=== PATIENT | female | born 1970 | race Caucasian/White ===

== ENCOUNTER 2017-06-12 14:32 | Emergency (ER) | payer BC ==
--- NOTE | 2017-06-12 15:51 | EDM.PDOC ---
ED HPI GENERAL MEDICAL PROBLEM - General Chief Complaint: Lower Extremity Injury/Pain Stated Complaint: POSSIBLE BLOT CLOT IN LT LEG Time Seen by Provider: 06/12/17 15:45 Source of Information: Reports: Patient History Limitations: Reports: No Limitations - History of Present Illness INITIAL COMMENTS - FREE TEXT/NARRATIVE: HISTORY AND PHYSICAL: History of present illness: [Patient comes to the emergency room complaining of left lower extremity pain. Left calf and lower leg have been feeling tight for the past 5 days but pain and swelling began this morning. She complains of warmth and pain to her left calf. Describes it as an aching feeling with some sharp shooting pains. Has a history of type 2 diabetes for several years. Stopped all of her medications about 6 months ago. Smokes one pack of cigarettes per day. No history of bleeding or clotting disorders. No fever or chills. No pain in her right lower extremity. No chest pain shortness of breath or difficulty breathing. She has no other complaints or concerns at this time. ] Review of systems: As per history of present illness and below otherwise all systems reviewed and negative. Past medical history: As per history of present illness and as reviewed below otherwise noncontributory. Surgical history: As per history of present illness and as reviewed below otherwise noncontributory. Social history: No reported history of drug or alcohol abuse. Family history: As per history of present illness and as reviewed below otherwise noncontributory. Physical exam: HEENT: Atraumatic, normocephalic. Lungs: Clear to auscultation, breath sounds equal bilaterally. Heart: S1S2, regular rate and rhythm. Extremities: Positive Homans on the left. Tender with palpation behind left knee over the popliteal space. Calf is tender with palpation. No cords are palpated. Swelling is apparent to left ankle and foot. Cap refill less than 2 seconds. Neurovascular unremarkable. Neuro: Awake, alert, oriented. Motor and sensory unremarkable throughout. Exam nonfocal. Diagnostics: [CBC, CMP, venous Doppler ultrasound left lower extremity] Therapeutics: [Xarelto 15mg po x1] Impression: [DVT Left LE] Plan: [Discussed with patient that she has a DVT to her left lower extremity. Urged her to quit smoking. Stop aspirin. She may use Tylenol for discomfort. Keep leg elevated. She is given her first dose of Xarelto 15 mg in the emergency room and sent home with an Rx for xarelto 15mg (#42) si po BID x 21 days 0 RF's. Urged patient to follow-up with PCP in the next 48 hours. She verbalized understanding of today's discussion and is in agreement with today's plan.] Definitive disposition and diagnosis as appropriate pending reevaluation and review of above. left lower leg Pain Score (Numeric/FACES): 8 - Related Data Allergies Allergy/AdvReac Type Severity Reaction Status Date / Time diphenhydramine Allergy Anaphylactic Verified 06/12/17 14:54 [From Benadryl] Shock Home Meds: Home Meds Aspirin 81 mg PO DAILY 06/12/17 [History] Past Medical History HEENT History: Reports: None Cardiovascular History: Reports: None Respiratory History: Reports: None Gastrointestinal History: Reports: None Genitourinary History: Reports: None [employer] History: Reports: None Musculoskeletal History: Reports: None Neurological History: Reports: None Psychiatric History: Reports: None Endocrine/Metabolic History: Reports: Diabetes, Type II Hematologic History: Reports: None Immunologic History: Reports: None Oncologic (Cancer) History: Reports: None Dermatologic History: Reports: None - Past Surgical History Head Surgeries/Procedures: Reports: None HEENT Surgical History: Reports: None Cardiovascular Surgical History: Reports: None Respiratory Surgical History: Reports: None GI Surgical History: Reports: None Female Surgical History: Reports: Breast Reduction Endocrine Surgical History: Reports: None Neurological Surgical History: Reports: None Musculoskeletal Surgical History: Reports: Other (See Below) Oncologic Surgical History: Reports: None Dermatological Surgical History: Reports: None Social & Family History - Family History Family Medical History: Noncontributory - Tobacco Use Smoking Status *Q: Current Every Day Smoker Years of Tobacco use: 35 Packs/Tins Daily: 1 - Caffeine Use Caffeine Use: Reports: None - Recreational Drug Use Recreational Drug Use: No Review of Systems - Review of Systems Review Of Systems: ROS reveals no pertinent complaints other than HPI. ED EXAM, GENERAL - Physical Exam Exam: See Below Course - Vital Signs Last Recorded V/S: Last Vital Signs Temp 96.8 F 06/12/17 14:55 Pulse 82 06/12/17 18:15 Resp 18 06/12/17 18:15 BP 175/93 H 06/12/17 18:15 Pulse Ox 96 06/12/17 18:15 - Orders/Labs/Meds Orders: Active Orders 24 hr Category Date Time Status Venous Doppler Lwr Ext Lt [US] Stat Exams 06/12/17 15:47 Taken Labs: Laboratory Tests 06/12/17 06/12/17 06/12/17 Range/Units 15:53 15:53 15:53 WBC 6.89 (4.0-11.0) K/uL RBC 4.84 (4.30-5.90) M/uL Hgb 16.2 H (12.0-16.0) g/dL Hct 46.0 (36.0-46.0) % MCV 95.0 (80.0-98.0) fL MCH 33.5 H (27.0-32.0) pg MCHC 35.2 (31.0-37.0) g/dL RDW Std Deviation 43.3 (28.0-62.0) fl RDW Coeff of Sruthi 13 (11.0-15.0) % Plt Count 191 (150-400) K/uL MPV 9.50 (7.40-12.00) fL Neut % (Auto) 73.0 (48.0-80.0) % Lymph % (Auto) 17.7 (16.0-40.0) % Ponce % (Auto) 7.0 (0.0-15.0) % Eos % (Auto) 2.2 (0.0-7.0) % Baso % (Auto) 0.1 (0.0-1.5) % Neut # (Auto) 5.0 (1.4-5.7) K/uL Lymph # (Auto) 1.2 (0.6-2.4) K/uL Ponce # (Auto) 0.5 (0.0-0.8) K/uL Eos # (Auto) 0.2 (0.0-0.7) K/uL Baso # (Auto) 0.0 (0.0-0.1) K/uL Nucleated RBC % 0.0 /100WBC Nucleated RBCs # 0 K/uL INR 0.99 (0.86-1.11) Sodium 140 (136-146) mmol/L Potassium 4.2 (3.5-5.1) mmol/L Chloride 104 (98-110) mmol/L Carbon Dioxide 23 (21-31) mmol/L BUN 7 (6.0-23.0) mg/dL Creatinine 0.8 (0.6-1.5) mg/dL Est Cr Clr Drug Dosing 84.54 mL/min Estimated GFR (MDRD) > 60.0 ml/min Glucose 296 H (60-110) mg/dL Calcium 9.4 (8.8-10.8) mg/dL Total Bilirubin 0.5 (0.1-1.5) mg/dL AST 52 H (5-40) IU/L ALT 26 (8-54) IU/L Alkaline Phosphatase 114 (40-150) Total Protein 7.5 (6.0-8.0) g/dL Albumin 4.2 (3.5-5.0) g/dL Globulin 3.3 (2.0-3.5) g/dL Albumin/Globulin Ratio 1.3 (1.3-2.8) Meds: Medications Discontinued Medications Generic Name Dose Route Start Last Admin Trade Name Nichole PRN Reason Stop Dose Admin Rivaroxaban 15 mg 06/13/17 17:30 06/12/17 18:12 Xarelto PO 15 mg WITHDINNER EVA Administration Rivaroxaban Confirm 06/12/17 17:48 06/12/17 18:12 Xarelto Administered 06/12/17 17:49 Not Given Dose 15 mg .ROUTE .STK-MED ONE Departure - Departure Time of Disposition: 17:45 Disposition: Home, Self-Care 01 Condition: Good Clinical Impression: DVT (deep venous thrombosis) - Discharge Information Instructions: Deep Vein Thrombosis Referrals: PCP,None [Primary Care Provider] - Manpreet Roque MD [Resident] - Forms: ED Department Discharge Additional Instructions: The following information is given to patients seen in the emergency department who are being discharged to home. This information is to outline your options for follow-up care. We provide all patients seen in our emergency department with a follow-up referral. The need for follow-up, as well as the timing and circumstances, are variable depending upon the specifics of your emergency department visit. If you don't have a primary care physician on staff, we will provide you with a referral. We always advise you to contact your personal physician following an emergency department visit to inform them of the circumstance of the visit and for follow-up with them and/or the need for any referrals to a consulting specialist. The emergency department will also refer you to a specialist when appropriate. This referral assures that you have the opportunity for follow-up care with a specialist. All of these measure are taken in an effort to provide you with optimal care, which includes your follow-up. Under all circumstances we always encourage you to contact your private physician who remains a resource for coordinating your care. When calling for follow-up care, please make the office aware that this follow-up is from your recent emergency room visit. If for any reason you are refused follow-up, please contact the [facility] emergency department at and asked to speak to the emergency department charge nurse. [facility] [address] [place] [id number] Establish care with a local primary care provider at the clinic listed above follow-up there in the next 48 hours. Take medications as prescribed. Quit smoking. Return to ER as needed as discussed. - My Orders Last 24 Hours: My Active Orders 06/12/17 15:47 Venous Doppler Lwr Ext Lt [US] Stat - Assessment/Plan Last 24 Hours: My Active Orders 06/12/17 15:47 Venous Doppler Lwr Ext Lt [US] Stat
[2017-06-12 16:22] LABS: CHLORIDE,CL 104 mmol/L (98-110); SODIUM,NA 140 mmol/L (136-146)
[2017-06-12] MEDS ORDERED: Rivaroxaban 15 MG Tab ONE (17:48)
[2017-06-13] MEDS ORDERED: Rivaroxaban 15 MG Tab PO SCH (17:30)
--- NOTE | 2017-06-13 19:40 | US ---
EXAM DATE: 06/12/17 PATIENT'S AGE: 47 Patient: SHAQUILLE TRAN Facility: [place], [place] Site . Site : 1970 Study: US Extremity Venous [id number] 4:52:50 PM Ordering Physician: Doctor Martinez Final Report: HISTORY: Left lower extremity pain. TECHNIQUE: Grayscale and color and spectral Doppler ultrasound of the left lower extremity deep veins. COMPARISON: None. FINDINGS: Left: Common femoral vein is patent and compressible. Femoral and deep femoral veins are patent and compressible. Occlusive hypoechoic thrombus in the popliteal, posterior tibial, and anterior tibial veins. Peroneal vein is not visualized. Greater saphenous vein is patent and compressible at the junction with the femoral vein. IMPRESSION: DVT in the left popliteal, posterior tibial, and anterior tibial veins. Communicated with Dr. Tao on 06/12/17 at 1725 hours. Dictated by Luis Jim MD @ Jun 12 2017 5:29PM (Electronic Signature) Report Signed by Proxy. [facility]
== END 2017-06-12 18:17 | disposition home or self-care (01) ==
LOC: MW.ED 14:32
DX: I82.402 Acute embolism and thrombosis of unspecified deep veins of left lower extremity (principal); F17.210 Nicotine dependence, cigarettes, uncomplicated; E11.9 Type 2 diabetes mellitus without complications; Z79.82 Long term (current) use of aspirin; Z88.8 Allergy status to other drugs, medicaments and biological substances
CPT/HCPCS: 36415; 80053; 85025; 85610; 93971; 99283; A9270; 99284

== ENCOUNTER 2021-10-07 08:08 | Emergency (ER) | payer SELFPAY ==
[2021-10-07 08:51] LABS: BLOOD UREA NITROGEN,BUN 9 mg/dL (7.0-18.0); CARBON DIOXIDE,CO2 26.4 mmol/L (21.0-32.0); CHLORIDE,CL 102 mmol/L (98-107); GLUCOSE RANDOM 165 mg/dL (74-106); POTASSIUM,K 3.8 mmol/L (3.5-5.1); SODIUM,NA 141 mmol/L (136-145)
[2021-10-07] MEDS ORDERED: Iopamidol 755 MG/ML 500 ML Multipack Bottle IVPUSH STA (10:07)
[2021-10-07] MEDS ORDERED: Ketorolac 30 MG/ML SDV IVPUSH ONE (10:51)
== END 2021-10-07 12:41 | disposition home or self-care (01) ==
LOC: MW.ED 08:08
DX: R07.9 Chest pain, unspecified (principal); J44.9 Chronic obstructive pulmonary disease, unspecified; E11.9 Type 2 diabetes mellitus without complications; I10 Essential (primary) hypertension; Z88.8 Allergy status to other drugs, medicaments and biological substances; Z79.84 Long term (current) use of oral hypoglycemic drugs; Z79.899 Other long term (current) drug therapy; Z72.0 Tobacco use
CPT/HCPCS: 36415; 71045; 71045-26; 71275; 71275-26; 80053; 84484; 85025; 93005; 96374; 99285-25; J1885; Q9967